=== PATIENT | male | born 1970 | race African-American/Black ===

== ENCOUNTER 2017-09-01 22:53 | Emergency (ER) | payer MEDICAID ==
[2017-09-01 23:29] LABS: HEMATOCRIT 33.5 % (42.0-54.0); HEMOGLOBIN 11.3 g/dL (13.5-17.5); LYMPHOCYTES 6.8 % (15-50); MCH 26.6 pg (26.0-34.0); MCHC 33.7 g/dL (31.0-37.0); MCV 78.8 fL (80.0-100.0); MEAN PLATELET VOLUME 10.3 fL (7.4-10.4); NEUTROPHILS 78.5 % (40-80); PLATELET COUNT 125 10x3/uL (130-400); RBC 4.25 10x6/uL (4.20-6.10); WBC 8.1 10x3/uL (4.8-10.8)
[2017-09-01 23:38] LABS: ALBUMIN 3.3 g/dL (3.4-5.0); ANION GAP 19.1 mmol/L (8-16); BILIRUBIN - TOTAL 2.24 mg/dL (0.2-1.3); CALCIUM 8.1 mg/dL (8.5-10.1); CARBON DIOXIDE 22.3 mmol/L (21.0-32.0); CREATININE - SERUM 1.4 mg/dL (0.6-1.3); MAGNESIUM - SERUM 1.8 mg/dL (1.8-2.4); POTASSIUM - SERUM 3.4 mmol/L (3.5-5.1); PROTEIN - SERUM 7.7 g/dL (6.4-8.2)
[2017-09-02 00:03] LABS: APPEARANCE CLOUDY (CLEAR); BILIRUBIN 1+ (NEGATIVE); COLOR DK YELLOW (YELLOW); GLUCOSE 500 mg/dL (NEGATIVE); KETONE MODERATE mg/dL (NEGATIVE); NITRITE NEGATIVE (NEGATIVE); PROTEIN TRACE mg/dL (NEGATIVE)
[2017-09-02 00:04] LABS: AMORPHOUS SEDIMENT >1+ /lpf (NONE SEEN); BACTERIA NONE SEEN /hpf (NONE SEEN); EPITHELIAL CELLS NSEEN /hpf (0-5); MUCUS <1+ /lpf (NONE SEEN); RED CELLS - URINE 0-5 /hpf (0-5); WHITE CELLS - URINE 0-5 /hpf (0-5)
[2017-09-02 00:04] LABS: CREATINE KINASE 507 UL (21-232); LIPASE 230 U/L (73-393); TROPONIN-I 0.026 ng/mL (0.000-0.060)
[2017-09-02 00:05] LABS: UDS - AMPHET NEGATIVE QUAL (NEGATIVE); UDS - BARB NEGATIVE QUAL (NEGATIVE); UDS - BENZO POSITIVE QUAL (NEGATIVE); UDS - COCAINE NEGATIVE QUAL (NEGATIVE); UDS - OPIATE NEGATIVE QUAL (NEGATIVE); UDS - PCP NEGATIVE QUAL (NEGATIVE); UDS - THC NEGATIVE QUAL (NEGATIVE)
[2017-09-02 00:06] LABS: CKMB 1.5 U/L (0.0-3.6)
== END 2017-09-02 02:20 | disposition home or self-care (01) ==
LOC: D.ER 22:53
PROVIDERS: Emergency Medicine
DX: F10.10 Alcohol abuse, uncomplicated (principal); G40.909 Epilepsy, unspecified, not intractable, without status epilepticus; Z91.14 Patient's other noncompliance with medication regimen; I10 Essential (primary) hypertension; E11.65 Type 2 diabetes mellitus with hyperglycemia; R00.0 Tachycardia, unspecified

== ENCOUNTER 2018-04-29 05:09 | Inpatient (IN) | payer MEDICAID ==
[~2018-04-29] VITALS: Ht 195.6 cm; Wt 109.1 kg
--- NOTE | ~2018-04-29 | MORECARE ---
CASE MANAGEMENT DISCHARGE SUMMARY PATIENT: EYAD PEARCE UNIT: [id number] ADM DATE: 04/29/18 AGE: 47 : 74 SEX: M ROOM/BED: D.2230 AUTHOR: JULISADOC PHYSICIAN: REFERRING PHYSICIAN: NIYAH ABERNATHY MD DATE OF SERVICE: 05/02/18 Discharge Plan Patient Name: EYAD PEARCE Facility: [facility]:[place] : 1970 Planned Disposition: Home Anticipated Discharge Date: 05/02/18 Discharge Date: Expected LOS: 3 Initial Reviewer: [email or web address] Initial Review Date: 05/02/2018 Generated: 05/02/18 1:01 pm Comments DCP- Discharge Planning Updated by [email or web address]: Veena So on 05/02/18 10:[address] Patient Name: EYAD PEARCE Admission Status: ER Accout number: [id number] Admission Date: 04-29-2018 : 1970 Admission Diagnosis:ALCOHOL DEPENDENCE WITH WITHDRAWAL, UNSPECIFIED Attending: NIYAH ABERNATHY Current LOS: 3 Anticipated DC Date: 05-02-2018 Planned Disposition: Home Primary Insurance: [employer] Discharge Planning Comments: CM met with patient to discuss discharge planning, he is alone in the room. States he lives with a friend, Sang Smiley. States he is independent with all ADL's. States he has not driven in 2 months because of seizures. States his friend, Sang or Rena, will pick him up. He refuses home health. States he is friends with Dr. Walton and Zuleika Sharp (RN) that can assist him if needed. He has a Rx written for his glucometer, test strips and lancets. I also informed him that he can get a glucometer for 10 dollars at [facility] and [facility] has a 4 dollar machine, I've been told. He is discharging home today. Manager Of Corporate: Veena So DCPIA - Discharge Planning Initial Assessment Updated by [email or web address]: Veena So on 05/02/18 11:37 am * Is the patient Alert and Oriented? Yes * How many steps to enter\\exit or inside your home? 2/0 * PCP Dr. Bernabe * Pharmacy None specific "whichever one is cheaper" * Preadmission Environment Home with Family * ADLs Independent * Equipment Other * Other Equipment Blood pressure machine * List name and contact numbers for known caregivers / representatives who currently or will assist patient after discharge: Sang Lean - [place] - [phone] * Verbal permission to speak to the caregivers and representatives has been obtained from the patient. Yes * Community resources currently utilized None * Additional services required to return to the preadmission environment? Yes * Can the patient safely return to the preadmission environment? Yes * Has this patient been hospitalized within the prior 30 days at any hospital? No Last DP export: 05/02/18 10:40 Patient Name: EYAD PEARCE Page [id number] at 1201 All edits/amendments must be made on the electronic document DICTATION DATE: 05/02/18 120 STUNT WOMAN: DONNA 05/02/18 120 RPT#: [id number] DC DATE: STATUS: ADM IN [facility] [address] [place] [address] END OF REPORT
--- NOTE | ~2018-04-29 | MORECARE ---
CASE MANAGEMENT DISCHARGE SUMMARY PATIENT: EYAD PEARCE UNIT: [id number] ADM DATE: 04/29/18 AGE: 47 : 74 SEX: M ROOM/BED: D.2230 AUTHOR: GENEVA EGAN PHYSICIAN: REFERRING PHYSICIAN: NIYAH ABERNATHY MD DATE OF SERVICE: 05/02/18 Discharge Plan Patient Name: [facility]YAD PEARCE [facility] [facility] 1970 Planned Disposition: Home Anticipated Discharge Date: 05/02/18 Discharge Date: Expected LOS: 3 Initial Reviewer: [email or web address] Initial Review Date: 05/02/2018 Generated: 05/02/18 12:40 pm DCPIA - Discharge Planning Initial Assessment Updated by [email or web address]: Veena So on 05/02/18 11:37 am * Is the patient Alert and Oriented? Yes * How many steps to enter\\exit or inside your home? 2/0 * PCP Dr. Bernaeb * Pharmacy None specific "whichever one is cheaper" * Preadmission Environment Home with Family * ADLs Independent * Equipment Other * Other Equipment Blood pressure machine * List name and contact numbers for known caregivers / representatives who currently or will assist patient after discharge: Sang Smiley [facility] [phone] * Verbal permission to speak to the caregivers and representatives has been obtained from the patient. Yes * Community resources currently utilized None * Additional services required to return to the preadmission environment? Yes * Can the patient safely return to the preadmission environment? Yes * Has this patient been hospitalized within the prior 30 days at any hospital? No Patient Name: EYAD PEARCE Page [id number] at 1140 All edits/amendments must be made on the electronic document DICTATION DATE: 05/02/18 1139 EMERY WHEEL MOLDER: DONNA 05/02/18 1139 RPT#: [id number] DC DATE: STATUS: ADM IN [facility] [address] [place] [address] END OF REPORT
--- NOTE | ~2018-04-29 | MORECARE ---
CASE MANAGEMENT DISCHARGE SUMMARY PATIENT: EYAD PEARCE UNIT: [id number] ADM DATE: 04/29/18 AGE: 47 : 74 SEX: M ROOM/BED: D.2230 AUTHOR: JUILSADOC PHYSICIAN: REFERRING PHYSICIAN: NIYAH ABERNATHY MD DATE OF SERVICE: 05/04/18 Discharge Plan Patient Name: EYAD PEARCE Facility: [facility]:[place] : 1970 Planned Disposition: Home Anticipated Discharge Date: 05/02/18 Discharge Date: 05/02/2018 Expected LOS: 3 Initial Reviewer: [email or web address] Initial Review Date: 05/02/2018 Generated: 05/04/18 4:03 pm Comments DCP- Discharge Planning Updated by [email or web address]: Veena So on 05/02/18 10:[address] Patient Name: EYAD PEARCE Admission Status: ER Accout number: [id number] Admission Date: 04-29-2018 : 1970 Admission Diagnosis:ALCOHOL DEPENDENCE WITH WITHDRAWAL, UNSPECIFIED Attending: NIYAH ABERNATHY Current LOS: 3 Anticipated DC Date: 05-02-2018 Planned Disposition: Home [facility] Discharge Planning Comments: CM met with patient to discuss discharge planning, he is alone in the room. States he lives with a friend, Sang Smiley. States he is independent with all ADL's. States he has not driven in 2 months because of seizures. States his friend, Sang or Rena, will pick him up. He refuses home health. States he is friends with Dr. Walton and Zuleika Sharp (RN) that can assist him if needed. He has a Rx written for his glucometer, test strips and lancets. I also informed him that he can get a glucometer for 10 dollars at [facility] and Michael has a 4 dollar machine, I've been told. He is discharging home today. Pattern Fitter: Veena So DCPIA - Discharge Planning Initial Assessment Updated by [email or web address]: Veena So on 05/02/18 11:37 am * Is the patient Alert and Oriented? Yes * How many steps to enter\\exit or inside your home? 2/0 * PCP Dr. Bernabe * Pharmacy None specific "whichever one is cheaper" * Preadmission Environment Home with Family * ADLs Independent * Equipment Other * Other Equipment Blood pressure machine * List name and contact numbers for known caregivers / representatives who currently or will assist patient after discharge: Sang Smiley - [place] - [phone] * Verbal permission to speak to the caregivers and representatives has been obtained from the patient. Yes * Community resources currently utilized None * Additional services required to return to the preadmission environment? Yes * Can the patient safely return to the preadmission environment? Yes * Has this patient been hospitalized within the prior 30 days at any hospital? No Last DP export: 05/02/18 11:01 Patient Name: EYAD PEARCE Page [id number] at 1503 All edits/amendments must be made on the electronic document DICTATION DATE: 05/04/18 150 SIFTER AND MILLER: DONNA 05/04/18 150 RPT#: [id number] DC DATE:05/02/18 STATUS: DIS IN [facility] [address] [place] [address] END OF REPORT
[2018-04-29] MEDS ORDERED: ZESTRIL10 MG (05:16)
[2018-04-29 05:44] LABS: BASOPHILS 0.3 % (0-2); EOSINOPHILS 0.8 % (0-7); HEMATOCRIT 35.9 % (42.0-54.0); HEMOGLOBIN 11.8 g/dL (13.5-17.5); IMMATURE GRANULOCYTES 0.2 % (0-5); LYMPHOCYTES 33.4 % (15-50); MCH 25.5 pg (26.0-34.0); MCHC 32.9 g/dL (31.0-37.0); MCV 77.7 fL (80.0-100.0); MONOCYTES 12.9 % (2-11); NEUTROPHILS 52.4 % (40-80); PLATELET COUNT 91 10x3/uL (130-400); RBC 4.62 10x6/uL (4.20-6.10); RDW 15.8 % (11.5-14.5)
[2018-04-29 05:53] LABS: APTT 29.2 SECONDS (22.8-39.4); INR 1.05 (0.85-1.17); PROTIME 13.2 SECONDS (11.6-15.0)
[2018-04-29 06:01] VITALS: BP 184/129
[2018-04-29 06:05] LABS: ALBUMIN 3.5 g/dL (3.4-5.0); ALKALINE PHOSPHATASE 122 U/L (46-116); ALT (SGPT) 78 U/L (10-68); CALC OSMOLALITY 273 mosm/kg (275-300); CALCIUM 9.1 mg/dL (8.5-10.1); CHLORIDE - SERUM 97 mmol/L (98-107); POTASSIUM - SERUM 3.7 mmol/L (3.5-5.1); PROTEIN - SERUM 7.9 g/dL (6.4-8.2); SODIUM 135 mmol/L (136-145); UREA NITROGEN 13 mg/dL (7-18); eGFR NON AFRICAN AMERICAN 86 mL/min (90-120)
[2018-04-29 06:06] LABS: GLUCOSE 166 mg/dL (74-106)
[2018-04-29 06:20] LABS: CKMB 0.8 U/L (0.0-3.6); CREATINE KINASE 310 UL (21-232); MAGNESIUM - SERUM 1.6 mg/dL (1.8-2.4); THYROID STIMULATING HORMONE 1.43 uIU/mL (0.36-3.74)
[2018-04-29 06:21] LABS: TROPONIN-I < 0.017 ng/mL (0.000-0.060)
[2018-04-29 06:50] VITALS: BP 191/126
[2018-04-29 10:51] VITALS: Ht 195.6 cm; Wt 109.1 kg
[2018-04-29 11:28] VITALS: BP 161/97
[2018-04-29 16:38] VITALS: BP 158/102
[2018-04-29 18:01] LABS: APPEARANCE CLEAR (CLEAR); BILIRUBIN NEGATIVE (NEGATIVE); COLOR YELLOW (YELLOW); GLUCOSE NEGATIVE (NEGATIVE); KETONE NEGATIVE (NEGATIVE); NITRITE NEGATIVE (NEGATIVE); PROTEIN NEGATIVE (NEGATIVE); SPECIFIC GRAVITY 1.015 (1.005-1.020); UROBILINOGEN NORMAL (NORMAL)
[2018-04-29 18:08] LABS: UDS - AMPHET NEGATIVE QUAL (NEGATIVE); UDS - BARB NEGATIVE QUAL (NEGATIVE); UDS - BENZO POSITIVE QUAL (NEGATIVE); UDS - COCAINE NEGATIVE QUAL (NEGATIVE); UDS - OPIATE POSITIVE QUAL (NEGATIVE); UDS - PCP NEGATIVE QUAL (NEGATIVE); UDS - THC NEGATIVE QUAL (NEGATIVE)
[2018-04-29 22:09] VITALS: BP 150/103
[2018-04-30 01:51] VITALS: BP 175/108
[2018-04-30 05:31] VITALS: BP 174/114
[2018-04-30 06:08] LABS: BASOPHILS 0.3 % (0-2); HEMATOCRIT 34.7 % (42.0-54.0); HEMOGLOBIN 11.1 g/dL (13.5-17.5); IMMATURE GRANULOCYTES 0.2 % (0-5); MCH 25.5 pg (26.0-34.0); MCV 79.6 fL (80.0-100.0); MONOCYTES 12.4 % (2-11); NEUTROPHILS 57.1 % (40-80); PLATELET COUNT 101 10x3/uL (130-400); RBC 4.36 10x6/uL (4.20-6.10); RDW 15.6 % (11.5-14.5)
[2018-04-30 06:18] LABS: CALC OSMOLALITY 275 mosm/kg (275-300); CALCIUM 8.5 mg/dL (8.5-10.1); CARBON DIOXIDE 26.1 mmol/L (21.0-32.0); CHLORIDE - SERUM 101 mmol/L (98-107); CREATININE - SERUM 0.9 mg/dL (0.6-1.3); GLUCOSE 158 mg/dL (74-106); MAGNESIUM - SERUM 2.1 mg/dL (1.8-2.4); POTASSIUM - SERUM 3.2 mmol/L (3.5-5.1); SODIUM 137 mmol/L (136-145); UREA NITROGEN 10 mg/dL (7-18); eGFR NON AFRICAN AMERICAN > 90 mL/min (90-120)
[2018-04-30 08:14] VITALS: BP 143/80
[2018-04-30 13:14] VITALS: BP 114/79; BP 130/90
[2018-04-30 17:50] VITALS: BP 125/76; BP 169/109
[2018-04-30 21:04] VITALS: BP 144/88
[2018-05-01 00:18] VITALS: BP 154/80
[2018-05-01 04:29] VITALS: BP 166/84
[2018-05-01 05:18] LABS: BASOPHILS 0.3 % (0-2); EOSINOPHILS 1.2 % (0-7); HEMATOCRIT 33.9 % (42.0-54.0); HEMOGLOBIN 10.8 g/dL (13.5-17.5); IMMATURE GRANULOCYTES 0.3 % (0-5); MCH 25.5 pg (26.0-34.0); MCHC 31.9 g/dL (31.0-37.0); MCV 80.1 fL (80.0-100.0); MEAN PLATELET VOLUME 11.5 fL (7.4-10.4); MONOCYTES 10.7 % (2-11); NEUTROPHILS 61.5 % (40-80); PLATELET COUNT 107 10x3/uL (130-400); RBC 4.23 10x6/uL (4.20-6.10); RDW 15.7 % (11.5-14.5); WBC 6.6 10x3/uL (4.8-10.8)
[2018-05-01 05:52] LABS: ALBUMIN 2.9 g/dL (3.4-5.0); ALKALINE PHOSPHATASE 83 U/L (46-116); BILIRUBIN - TOTAL 0.86 mg/dL (0.2-1.3); CALC OSMOLALITY 278 mosm/kg (275-300); CALCIUM 8.5 mg/dL (8.5-10.1); CARBON DIOXIDE 25.7 mmol/L (21.0-32.0); CHLORIDE - SERUM 104 mmol/L (98-107); CHOL - HDL RATIO 8.6 ratio (2.3-4.9); CHOLESTEROL, TOTAL 232 mg/dL (0-200); CREATININE - SERUM 0.9 mg/dL (0.6-1.3); GLUCOSE 146 mg/dL (74-106); HDL CHOLESTEROL 27 mg/dL (32-96); LDL CHOLESTEROL 180 mg/dL (0-100); LDL-HDL RATIO 6.7 ratio (1.5-3.5); PROTEIN - SERUM 6.7 g/dL (6.4-8.2); SODIUM 138 mmol/L (136-145); THYROID STIMULATING HORMONE 1.71 uIU/mL (0.36-3.74); TRIGLYCERIDE 129 mg/dL (30-200); UREA NITROGEN 12 mg/dL (7-18); eGFR NON AFRICAN AMERICAN > 90 mL/min (90-120)
[2018-05-01 06:17] LABS: ALT (SGPT) 50 U/L (10-68); POTASSIUM - SERUM 3.7 mmol/L (3.5-5.1)
[2018-05-01 08:10] VITALS: BP 160/103
[2018-05-01 12:45] VITALS: BP 151/99
[2018-05-01 17:57] VITALS: BP 141/91
[2018-05-01 21:23] VITALS: BP 172/98
[2018-05-02 05:52] VITALS: BP 162/101
[2018-05-02 06:16] LABS: BASOPHILS 0.3 % (0-2); EOSINOPHILS 1.2 % (0-7); HEMATOCRIT 32.8 % (42.0-54.0); HEMOGLOBIN 10.5 g/dL (13.5-17.5); IMMATURE GRANULOCYTES 0.5 % (0-5); LYMPHOCYTES 29.9 % (15-50); MCH 25.4 pg (26.0-34.0); MCV 79.4 fL (80.0-100.0); NEUTROPHILS 56.1 % (40-80); PLATELET COUNT 114 10x3/uL (130-400); RBC 4.13 10x6/uL (4.20-6.10); RDW 15.8 % (11.5-14.5); WBC 5.8 10x3/uL (4.8-10.8)
[2018-05-02 06:31] LABS: ALBUMIN 2.9 g/dL (3.4-5.0); ALKALINE PHOSPHATASE 83 U/L (46-116); ALT (SGPT) 47 U/L (10-68); BILIRUBIN - TOTAL 0.73 mg/dL (0.2-1.3); CALC OSMOLALITY 279 mosm/kg (275-300); CALCIUM 8.4 mg/dL (8.5-10.1); CARBON DIOXIDE 22.8 mmol/L (21.0-32.0); CHLORIDE - SERUM 107 mmol/L (98-107); CREATININE - SERUM 0.8 mg/dL (0.6-1.3); GLUCOSE 137 mg/dL (74-106); POTASSIUM - SERUM 3.9 mmol/L (3.5-5.1); PROTEIN - SERUM 6.8 g/dL (6.4-8.2); SODIUM 140 mmol/L (136-145); UREA NITROGEN 9 mg/dL (7-18); eGFR NON AFRICAN AMERICAN > 90 mL/min (90-120)
[2018-05-02 08:35] VITALS: BP 175/104
[2018-05-02] MEDS ORDERED: COREG12.5 MG PO (10:29)
[2018-05-02] MEDS ORDERED: HYDRALAZINE HCL50 MG PO (10:29)
[2018-05-02] MEDS ORDERED: ASPIRIN81 MG PO (10:30)
[2018-05-02] MEDS ORDERED: LIBRIUM25 MG PO (10:30)
[2018-05-02] MEDS ORDERED: GLUCOPHAGE500 MG PO (10:30)
[2018-05-02] MEDS ORDERED: VITAMIN B-1100 M1 PO (10:31)
[2018-05-02] MEDS ORDERED: FOLIC ACID1 MG PO (10:31)
[2018-05-02] MEDS ORDERED: FOLTX TABLET1 EACH PO (10:32)
[2018-05-02] MEDS ORDERED: PROTONIX40 MG PO (10:33)
[2018-05-02 11:48] LABS: APPEARANCE CLEAR (CLEAR); BILIRUBIN NEGATIVE (NEGATIVE); COLOR YELLOW (YELLOW); GLUCOSE 250 mg/dL (NEGATIVE); KETONE NEGATIVE (NEGATIVE); NITRITE NEGATIVE (NEGATIVE); PROTEIN TRACE mg/dL (NEGATIVE); SPECIFIC GRAVITY 1.025 (1.005-1.020)
[2018-05-02 11:49] LABS: BACTERIA FEW /hpf (NONE SEEN); EPITHELIAL CELLS RARE /hpf (0-5); MUCUS <1+ /lpf (NONE SEEN); RED CELLS - URINE RARE /hpf (0-5)
[2018-05-02 13:22] VITALS: BP 149/103
== END 2018-05-02 14:33 | disposition home or self-care (01) | DRG 101 ==
LOC: D.ER 05:09 → D.EDHOLD 07:10 → D.MS 07:10
PROVIDERS: Family Medicine; Internal Medicine Nephrology
DX: G40.89 Other seizures (principal); F10.239 Alcohol dependence with withdrawal, unspecified; E87.1 Hypo-osmolality and hyponatremia; F17.213 Nicotine dependence, cigarettes, with withdrawal; F10.231 Alcohol dependence with withdrawal delirium; G83.84 Todd's paralysis (postepileptic); Y90.9 Presence of alcohol in blood, level not specified; R56.9 Unspecified convulsions; E11.9 Type 2 diabetes mellitus without complications; I10 Essential (primary) hypertension; E83.42 Hypomagnesemia; F32.9 Major depressive disorder, single episode, unspecified; T51.91XA Toxic effect of unspecified alcohol, accidental (unintentional), initial encounter; D69.59 Other secondary thrombocytopenia; I69.398 Other sequelae of cerebral infarction; R20.9 Unspecified disturbances of skin sensation

== ENCOUNTER 2018-05-13 19:58 | Emergency (ER) | payer MEDICAID | END 2018-05-13 21:51 | disposition home or self-care (01) | LOC: D.ER 19:58 | DX: S39.012A Strain of muscle, fascia and tendon of lower back, initial encounter (principal); Y93.B9 Activity, other involving muscle strengthening exercises; Y92.019 Unspecified place in single-family (private) house as the place of occurrence of the external cause; M54.16 Radiculopathy, lumbar region; E11.9 Type 2 diabetes mellitus without complications; I10 Essential (primary) hypertension ==

== ENCOUNTER 2018-12-25 13:14 | Emergency (ER) | payer MEDICAID ==
[~2018-12-25] VITALS: Ht 195.6 cm; Wt 119.1 kg
[~2018-12-25 13:14] MED LIST: ASPIRIN81 MG PO; COREG12.5 MG PO; FOLIC ACID1 MG PO; FOLTX TABLET1 EACH PO; GLUCOPHAGE500 MG PO; HYDRALAZINE HCL50 MG PO; LIBRIUM25 MG PO; PROTONIX40 MG PO; ROBAXIN500 MG PO; VITAMIN B-1100 M1 PO; ZESTRIL10 MG
[2018-12-25 13:41] VITALS: Ht 195.6 cm; Wt 119.1 kg
[2018-12-25] MEDS ORDERED: LIBRIUM25 MG PO (13:48)
[2018-12-25] MEDS ORDERED: MULTI-DAY VITAM1 TAB PO (13:49)
[2018-12-25] MEDS ORDERED: FOLIC ACID1 MG PO (13:49)
[2018-12-25] MEDS ORDERED: FOLBIC RF TABL1 EACH PO (13:50)
[2018-12-25] MEDS ORDERED: ZANAFLEX4 MG PO (13:51)
[2018-12-25] MEDS ORDERED: HYDROCODON-ACE1 EAC7 PO (13:52)
[2018-12-25] MEDS ORDERED: NORVASC5 MG PO (13:53)
[2018-12-25] MEDS ORDERED: MICARDIS40 MG PO (13:54)
[2018-12-25 14:21] LABS: BASOPHILS 0.2 % (0-2); EOSINOPHILS 1.9 % (0-7); HEMATOCRIT 38.1 % (42.0-54.0); HEMOGLOBIN 13.3 g/dL (13.5-17.5); LYMPHOCYTES 41.1 % (15-50); MCH 23.6 pg (26.0-34.0); MCHC 34.9 g/dL (31.0-37.0); MCV 67.6 fL (80.0-100.0); MONOCYTES 9.5 % (2-11); NEUTROPHILS 47.3 % (40-80); PLATELET COUNT 103 10x3/uL (130-400); RBC 5.64 10x6/uL (4.20-6.10); RDW 15.1 % (11.5-14.5); WBC 4.3 10x3/uL (4.8-10.8)
[2018-12-25 14:32] LABS: APTT 27.4 SECONDS (22.8-39.4); INR 0.99 (0.85-1.17); PROTIME 12.6 SECONDS (11.6-15.0)
[2018-12-25 14:42] LABS: ALBUMIN 3.3 g/dL (3.4-5.0); ALKALINE PHOSPHATASE 76 U/L (46-116); ALT (SGPT) 22 U/L (10-68); CALC OSMOLALITY 287 mosm/kg (275-300); CALCIUM 8.7 mg/dL (8.5-10.1); CARBON DIOXIDE 24.7 mmol/L (21.0-32.0); CHLORIDE - SERUM 103 mmol/L (98-107); POTASSIUM - SERUM 3.6 mmol/L (3.5-5.1); PROTEIN - SERUM 7.2 g/dL (6.4-8.2); SODIUM 138 mmol/L (136-145); UREA NITROGEN 16 mg/dL (7-18); eGFR NON AFRICAN AMERICAN 85 mL/min (90-120)
[2018-12-25 14:49] LABS: CKMB 0.8 U/L (0.0-3.6); CREATINE KINASE 160 UL (21-232); MAGNESIUM - SERUM 1.6 mg/dL (1.8-2.4); TROPONIN-I < 0.017 ng/mL (0.000-0.060)
[2018-12-25 14:57] LABS: GLUCOSE 304 mg/dL (74-106)
[2018-12-25 17:53] LABS: TROPONIN-I 0.018 ng/mL (0.000-0.060)
[2018-12-25 18:21] LABS: APPEARANCE CLEAR (CLEAR); BILIRUBIN NEGATIVE (NEGATIVE); COLOR YELLOW (YELLOW); GLUCOSE 1000 mg/dL (NEGATIVE); KETONE NEGATIVE (NEGATIVE); NITRITE NEGATIVE (NEGATIVE); PROTEIN 1+ mg/dL (NEGATIVE); SPECIFIC GRAVITY 1.015 (1.005-1.020); UROBILINOGEN NORMAL (NORMAL)
[2018-12-25] MEDS ORDERED: CATAPRES0.1 MG PO (19:26)
[2018-12-25 19:56] VITALS: BP 140/97
== END 2018-12-25 19:57 | disposition home or self-care (01) ==
LOC: D.ER 13:14
PROVIDERS: Family Medicine
DX: I10 Essential (primary) hypertension (principal); E11.9 Type 2 diabetes mellitus without complications; R11.0 Nausea

== ENCOUNTER → 2019-01-01 09:47 | Outpatient (CLI) | payer MEDICAID ==
[2018-12-25 13:41] VITALS: BMI 31.1
[~2019-01-01 09:47] MED LIST changes: +CATAPRES0.1 MG PO; +FOLBIC RF TABL1 EACH PO; +HYDROCODON-ACE1 EAC7 PO; +MICARDIS40 MG PO; +MULTI-DAY VITAM1 TAB PO; +NORVASC5 MG PO; +ZANAFLEX4 MG PO
--- NOTE | 2019-01-08 09:53 | ST ---
PATIENT:EYAD PEARCE MEDICAL RECORD: [id number] SEX: M LOCATION:[facility] ORDER #: ADMISSION DATE: 01/01/19 AGE OF PATIENT: 48 REFERRING PHYSICIAN: INTERPRETING PHYSICIAN: FRAN YOUNG MD DATE OF SERVICE: 01/01/2019 PROCEDURE: Nuclear stress test. INDICATIONS: Shortness of breath, angina, hypertension, hyperlipidemia, diabetes, abnormal ECG. He was exercised on standard Joshua protocol for 6 minutes 20 seconds achieving greater than 85% max target heart rate response with 33 mCi of sestamibi injected at peak stress, 11 mCi used previously for rest images. FINDINGS: Gated SPECT reveals a dilated cardiomyopathy. Ejection fraction in the 20% range. SPECT imaging: Cardiolite was used as myocardial perfusion agent. There is a large area of mixed perfusion inferiorly and apically. This is partially fixed, partially reversible and includes the basal, mid, apical, inferior segments as well as the apex itself. There is reversibility throughout the defect. The remaining segments show homogeneous uptake at rest and stress. OVERALL IMPRESSION: This is an abnormal nuclear stress test showing an ischemic cardiomyopathy, ejection fraction in the 20% range with ongoing ischemia inferiorly as well as apically. We will proceed with coronary angiography as a followup study as this is a high risk nuclear stress test. TRANSINT:[id number] Voice Confirmation ID: [id number] DOCUMENT ID: [id number] FRAN YOUNG MD at 0953 CC: SILVINA HICKMAN DO [id number] DICTATION DATE: 01/02/19 1123 FRAME STRAIGHTENER: 01/02/19 2352 DEP CLI 01/01/19 [place] [id number] [place] [id number]
== END | disposition home or self-care (01) ==
LOC: D.HCCARDIO 09:47
PROVIDERS: ATTEND Internal Medicine Interventional Cardiology
DX: I20.9 Angina pectoris, unspecified (principal)

== ENCOUNTER 2019-01-29 11:31 | Outpatient (CLI) | payer MEDICAID ==
[~2019-01-29] VITALS: Ht 195.6 cm; Wt 118.6 kg
--- NOTE | ~2019-01-29 | HEMODYNAMI ---
PATIENT:EYAD PEARCE MEDICAL RECORD: [id number] : 74 LOCATION:[facility] ADMISSION DATE: 01/29/19 Generatedon:01/29/201914:23 Patient name: EYAD PEARCE Patient #: [id number] SSN: [id number] : 1970 Date of study: 01/29/2019 Page: Of Hemodynamic Procedure Report Patient Data Patient Demographics Procedure consent was obtained First Name: EYAD Gender: Male Last Name: PORTIA : 1970 Patient #: [id number] Age: 48 year(s) Race: Black SSN: [id number] Additional ID: [id number] Contact details Address: [address] [place] [address] State: [place] City: [place] Zip code: [address] Admission Admission Data Admission Date: 01/29/2019 Admission Time: 11:31 Arrival Date: 01/29/2019 Arrival Time: 13:30 Admit Source: Other Insurance Payor: Private health insurance Height (in.): 77 BSA: 2.5 (m2) Height (cm.): 195.58 BMI: 30.95 (kg/m2) Weight (lbs.): 261 Weight (kg.): 118.39 Lab Results Lab Result Date: 01/29/2019 Lab Result Time: 0:00 Biochemistry Name Units Result Min Max BUN mg/dl 24 --(----)-* 7 18 Creatinine mg/dl 1.3 --(---*)-- 0.6 1.3 CBC Name Units Result Min Max Hemoglobin g/dl 13.9 --(*---)-- 13.5 17.5 Procedure Procedure Types Cath Procedure Diagnostic Procedure [facility] w/Coronaries Sedation Charges Moderate Sedation up to 15 minutes Procedure Description Procedure Date Procedure Date: 01/29/2019 Procedure Start Time: 14:11 Procedure End Time: 14:21 Procedure Staff Name Function Arcadio Ruff MD Performing Physician Kayla Cao RT Monitor Nina Stoddard RT Scrub Elia Mario RN Nurse Procedure Data Cath Procedure Fluoroscopy Diagnostic fluoroscopy Total fluoroscopy Time: 2.2 time: 2.2 min min Diagnostic fluoroscopy Total fluoroscopy dose: dose: 299.94 mGy 299.94 mGy Contrast Material Contrast Material Type Amount (ml) Isovue 300 64 Entry Location Entry Primary Successful Side Size Upsize Upsize Entry Closure Sidhu ccessful Closure Location (Fr) 1 (Fr) 2 (Fr) Remarks Device Remarks Radial Right 6 Fr Mechanical artery Short Compression Estimated blood loss: 5 ml Diagnostic catheters Device Type Used For End Catheter Placement DIAGNOSTIC Thomson 110cm 5 Multi-vessel Fr catheter ([id number]) Angiography Procedure Complications No complications Procedure Medications Medication Administration Route Dosage 0.9% NaCl I.V. 100 ml/hr Oxygen etCO2 Nasal cannula 2 l/min Heparin Flush Bag added to field 2 bags (1000units/500ml NS) Lidocaine 2% added to field 20 Radial Cocktail added to field 1 syringe (Verapamil 2mg/Nitro 400mcg/Heparin 1500units) Versed I.V. 2 mg Fentanyl I.V. 100 mcg Benadryl I.V. 50 mg Radial Cocktail I.A. 1 syringe (Verapamil 2mg/Nitro 400mcg/Heparin 1500units) Versed I.V. 1 mg Hemodynamics Rest BSA: 2.5 (m2) HGB: 13.9 (g/dl) O2 Consumption: Estimated: 319.9 (ml/min) O2 Cons umption indexed: Estimated:127.96 (ml/min/m) Heart Rate: 90 (bpm) Pressure Samples Time Site Value (mmHg) Purpose Heart Use Rate(bpm) 14:13 LV 111/-5,6 Snapshot 92 Gradients Valve Time Site Site Mean SEP/DFP Peak To Heart Use 1 2 (mmHg) (sec/min) Peak Rate (mmHg) (bpm) Aortic 14:14 LV AO 88 Snapshots Pre Cath Intra NCS Post Cath Vital Signs Time Heart Resp SPO2 etCO2 NIBP (mmHg) Rhythm Pain Sedation Rate (ipm) (%) (mmHg) Status Level (bpm) 13:55:18 81 15 98 33.7 162/109(128) NSR 0 (11) 10(A) , No pain 13:59:36 86 19 100 35.9 161/111(130) NSR 0 (11) 10(A) , No pain 14:03:53 87 18 100 20.9 163/119(138) NSR 0 (11) 10(A) , No pain 14:08:11 85 15 99 38.1 161/115(131) NSR 0 (11) 9(A) , No pain 14:12:29 90 14 99 39.6 160/110(131) NSR 0 (11) 9(A) , No pain 14:16:45 83 14 96 39.6 150/102(126) NSR 0 (11) 10(A) , No pain 14:20:59 84 13 96 37.4 146/104(119) NSR 0 (11) 10(A) , No pain Medications Time Medication Route Dose Verified Delivered Reason Notes Effectiveness by by 14:01:40 0.9% NaCl I.V. 100 Elia Elia Per ml/hr Fabiano Mario physician RN RN 14:01:54 Oxygen etCO2 2 l/min Elia Elia for low 02 Nasal Lorregina Mario sats cannula RN RN 14:02:08 Heparin Flush added 2 bags Elia Elia used for Bag to Fabiano Mario procedure (1000units/500ml field LUKE RN NS) 14:02:22 Lidocaine 2% added 20ml Elia Elia for local to vial Lorigan Fabiano anesthetic field LUKE RN 14:02:34 Radial Cocktail added 1 Elia Elia used for (Verapamil to syringe Erlindaigan Fabiano procedure 2mg/Nitro field LUKE RN 400mcg/Heparin 1500units) 14:02:49 Versed I.V. 2 mg Elia Elia for sedation Fabiano Mario RN RN 14:02:59 Fentanyl I.V. 100 mcg Elia Elia for sedation Fabiano Mario RN RN 14:03:09 Benadryl I.V. 50 mg Elia Elia Per Fabiano Mario physician RN RN 14:09:23 Radial Cocktail I.A. 1 Elia Arcadio for (Verapamil syringe Lorigan [place] vasodilation 2mg/Nitro TI GONZALEZ 400mcg/Heparin 1500units) 14:09:31 Versed I.V. 1 mg Elia Elia for sedation Fabiano Mario RN radio interference supervisor Log Time Note 13:35:07 Elia Mario RN sent for patient. Start room use. 13:39:03 Diagnostic Cath Status : Elective 13:39:39 Informed consent obtained and on chart 13:39:56 Patient Height : 77 inches 13:40:15 Insurance Payor : Private health insurance 13:40:15 Patient Weight : 261 lbs 13:40:17 Arrival Date: 01/29/2019 1:30:00 PM 13:40:27 Admit Source: Other 13:42:29 Lab Result : BUN 24 mg/dl 13:42:29 Lab Result : Creatinine 1.3 mg/dl 13:42:29 Lab Result : Hemoglobin 13.9 g/dl 13:43:59 ACCPatient has been prescribed/administered the following anti-anginal medication within the last 2 weeks: None 13:44:04 Procedure Status Elective Heart Cath (OP). 13:44:14 Time tracking: Regular hours (M-F 7:00 - 5:00) 13:44:19 Plan of Care:Hemodynamics will remain stable., Cardiac rhythm will remain stable., Comfort level will be maintained., Respiratory function will remain adequate., Patient/ family verbilizes understanding of procedure., Procedure tolerated without complication., Recovers from procedure without complications.. 13:44:48 Patient received from Pre/Post Procedure Room to CCL 3 Alert and oriented. Tansferred to table in Supine position. 13:44:49 Warm blankets applied, and elder hugger turned on for patient comfort. 13:44:49 Correct patient and procedure confirmed by team. 13:44:50 ECG and BP/O2 sat monitors applied to patient. 13:54:09 Vital chart was started 13:54:10 Baseline sample Acquired. 13:54:14 Rhythm: sinus rhythm 13:54:16 Full Disclosure recording started 13:54:19 H&P Date Dictated: 01/29/2019 Within 30 days and on chart., H&P Addendum completed by physician on day of procedure. (MUST COMPLETE FOR ALL OUTPATIENTS). 13:54:21 Pre-procedure instructions explained to patient. 13:54:22 Pre-op teaching completed and patient verbalized understanding. 13:54:23 Family in waiting room. 13:54:25 Patient NPO since Midnight. 13:54:28 Is the patient allergic to Iodine/contrast media? No. 13:54:29 Was the patient premedicated? No 13:54:44 Is patient on blood thinner?No 13:54:46 Patient diabetic? Yes. 13:54:47 If diabetic: On Metformin? Yes 13:54:50 If on Metformin: Last Dose? 01/27/2019 13:54:54 Previous problem with sedation/anesthesia? No ? 13:54:56 Snore? Yes 13:54:57 Sleep apnea? Yes 13:54:58 Deviated septum? No 13:54:58 Opens mouth fully? Yes 13:54:59 Sticks out tongue? Yes 13:55:01 Airway obstruction? No ? 13:55:03 Dentures? No ? 13:55:27 Pre procedure: right dorsailis pedis pulse 2+ Normal; easily identifiable; not easily obliterated 13:55:33 Pre procedure: left dorsailis pedis pulse 2+ Normal; easily identifiable; not easily obliterated 13:55:36 Patient pain scale 0/10 ?. 13:55:41 IV patent on arrival in left forearm with 0.9% NaCl at O. 13:55:44 Lab results completed and on chart. 13:55:49 Right Radial & Right Groin area was prepped with chlora-prep and draped in sterile fashion 13:55:57 Alarms reviewed by R. N. 13:55:57 Sharps counted by scrub and verified by R.N. 13:56:01 Physician arrived 13:56:02 --------ALL STOP TIME OUT------ 13:56:02 Final Timeout: patient, procedure, and site verified with staff and physician. All members of the team are in agreement. 13:56:09 Right Radial & Right Groin site verified by team. 13:56:13 Fire Safety Assessment: A--An alcohol-based skin anteseptic being used preoperatively., C--Open oxygen or nitrous oxide is being used., D--An ESU, laser, or fiber-optic light is being used. 13:56:16 Physical assessment completed. ASA score P 2 - A patient with mild systemic disease as per Arcadio Ruff MD. 13:59:04 2) 60-89 Mildly reduced kidney function, and other findings (as for stage 1) point to kidney disease. 13:59:55 Maximum allowable contrast dose (3.7 X eGFR X 0.75)210 ml. 14:00:01 Sedation plan: IV Moderate Sedation Medication:Versed, Fentanyl 14:01:40 0.9% NaCl 100 ml/hr I.V. was administered by Elia Mario RN; Per physician; 14:01:54 Oxygen 2 l/min etCO2 Nasal cannula was administered by Elia Mario RN; for low 02 sats; 14:02:08 Heparin Flush Bag (1000units/500ml NS) 2 bags added to field was administered by Elia Mario RN; used for procedure; 14:02:22 Lidocaine 2% 20ml vial added to field was administered by Elia Mario RN; for local anesthetic; 14:02:34 Radial Cocktail (Verapamil 2mg/Nitro 400mcg/Heparin 1500units) 1 syringe added to field was administered by Elia Mario RN; used for procedure; 14:02:47 Use device set Radial Dx or PCI 14:02:48 ACIST Syringe (84663) opened to sterile field. 14:02:49 Versed 2 mg I.V. was administered by Elia Mario RN; for sedation; 14:02:49 Medline Cath Pack ([id number]) opened to sterile field. 14:02:49 Bag Decanter () opened to sterile field. 14:02:49 ACIST Hand Control (72188) opened to sterile field. 14:02:50 ACIST Manifold (10627) opened to sterile field. 14:02:50 Tegaderm 4 x 4 (1626W) opened to sterile field. 14:02:51 MBrace Wrist Support ([id number]) opened to sterile field. 14:02:51 NEEDLE Cook 21G 4cm Radial (X21187) opened to sterile field. 14:02:59 Fentanyl 100 mcg I.V. was administered by Elia Mario RN; for sedation; 14:03:09 Benadryl 50 mg I.V. was administered by Elia Mario RN; Per physician; 14:03:16 SHEATH 6FR RAIN (0083770) opened to sterile field. 14:03:17 EMERALD Guide Wire (010-183) opened to sterile field. 14:09:23 Radial Cocktail (Verapamil 2mg/Nitro 400mcg/Heparin 1500units) 1 syringe I.A. was administered by Arcadio Ruff MD; for vasodilation; 14:09:31 Versed 1 mg I.V. was administered by Elia Mario RN; for sedation; 14:11:13 Procedure started. 14:11:18 Local anesthetic to right radial artery with Lidocaine 2% by Arcadio Ruff MD.INITIAL ACCESS ONLY 14:11:28 A 6 Fr Short sheath was inserted into the Right Radial artery 14:12:38 GLIDE WIRE ANGLE 260cm (AR7357) opened to sterile field. 14:12:54 A DIAGNOSTIC Thomson 110cm 5 Fr catheter (982877) was advanced over the wire and used for Multi-vessel Angiography. 14:13:45 LV hemodynamics recorded. 14:13:46 LV gram done using COMBS 14:13:48 Injector settings: Ml/sec: 5, Volume: 15, 14:14:10 EF : 25 % 14:14:28 LCA angiography performed. 14:14:31 Injector settings: Ml/sec: 3, Volume: 6, 14:16:09 ACCDominant side:Co-Dominant 14:16:38 RCA angiography performed. 14:16:41 Injector settings: Ml/sec: 3, Volume: 6, 14:16:42 Catheter removed. 14:17:14 ZEPHYR REGULAR TR BAND (754705) opened to sterile field. 14:17:53 Sheath removed intact; hemostasis achieved with Mechanical Compression to the Right Radial artery. 14:17:56 Procedure ended.(Physican Out) 14:18:58 Fluoroscopy time 02.20 minutes. 14:19:18 Fluoroscopy dose: 299.94 mGy 14:19:18 Flurop Dose total: 299.94 14:19:36 Dose Area Product 2199.34 mGy/cm. 14:19:50 Contrast amount:Isovue 300 64ml. 14:19:52 Sharps counted by scrub and verified by R.N. 14:19:54 Hardin band inflated with 10cc of air. 14:19:56 Insertion/operative site no bleeding no hematoma. 14:20:01 Post right radial artery:stable 14:20:02 Post Procedure Pulses reassessed and unchanged 14:20:05 Post procedure rhythm: unchanged. 14:20:08 Estimated blood loss: 5 ml 14:20:10 Post procedure instruction explained to patient.Patient verbalizes understanding. 14:20:10 Patient needs reinforcement of post procedure teaching. 14:20:17 Procedure type changed to Cath procedure, Diagnostic procedure, LHC, LHC w/Coronaries, Sedation Charges, Moderate Sedation up to 15 minutes 14:20:19 Procedure and supply charges have been captured, reviewed, submitted and are correct. 14:20:23 Procedure Complication : No complications 14:20:25 Vital chart was stopped 14:20:26 See physician's report for complete and final results. 14:20:55 Report given to Pre/Post Procedure Room. 14:20:59 Patient transfered to Pre/Post Procedure Room with Stretcher. 14:21:01 Procedure ended. 14:21:01 Full Disclosure recording stopped 14:21:11 End room use (Document Last) Device Usage Item Name Manufacture Quantity Catalog Hospital Part Current Minima l Lot# / Number Charge Number Stock Stock Serial# Code ACIST Acist 1 18168 [id number] 422797 [id number] 20 Syringe Medical (90601) Systems Inc Medline Medline 1 [id number] 894835 47796 540082 5 Cath Pack ([id number]) Bag Microtek 1 749913 57004 891456 5 Decanter Medical Inc. () ACIST Hand Acist 1 06064 610376 829267 027698 5 Control Medical (88799) Systems Inc ACIST Acist 1 16240 028576 909583 940258 5 Manifold Medical (55249) Systems Inc Tegaderm 4 3M 1 1626W 250173 331187 458430 5 x 4 (1626W) MBrace Advanced 1 140-0250-00 733393 73774 418058 5 Wrist Vascular Support Dynamics ([id number]) NEEDLE Cook Cook Medical 1 M95661 700052 572647 956871 5 21G 4cm Radial (N41736) SHEATH 6FR Cardinal 1 8272149 797227 8847085 338402 5 [facility] (5566694) EMERALD Cardinal 1 502-455 761928 951241 492474 5 Guide Wire Health (564-455) GLIDE WIRE Terumo 1 BC7942 725308 376407 989581 5 ANGLE 260cm (EK7086) DIAGNOSTIC Terumo 1 07-9315 075051 602053 517255 5 Thomson 110cm 5 Fr catheter (404830) ZEPHYR Cardinal 1 726682 929728 3394119 690594 5 REGULAR TR Health BAND (051198) Signature Audit [place] Stage Time Signature Unsigned Intra-Procedure 01/29/2019 Kayla Cao 2:23:30 PM RT(R) Signatures Performing Physician : Signature : Arcadio Ruff MD Date : Time : Monitor : Kayla Cao RT Signature : Date : Time : Nurse : Elia Coffeyigan Signature : RN Date : Time : [facility] [address] [place] [address], [place] [address]
[2019-01-29] MEDS ORDERED: ENTRESTO 49 MG1 EACH PO (12:21)
[2019-01-29] MEDS ORDERED: NORVASC5 MG PO (12:22)
[2019-01-29] MEDS ORDERED: HYDROCODONE-A1 UDTA2 PO (12:22)
[2019-01-29 12:34] VITALS: BP 134/95; Ht 195.6 cm; Wt 118.6 kg
[2019-01-29 12:54] LABS: BASOPHILS 0.7 % (0-2); EOSINOPHILS 3.2 % (0-7); HEMATOCRIT 40.1 % (42.0-54.0); HEMOGLOBIN 13.9 g/dL (13.5-17.5); IMMATURE GRANULOCYTES 0.2 % (0-5); LYMPHOCYTES 44.8 % (15-50); MCH 23.3 pg (26.0-34.0); MCHC 34.7 g/dL (31.0-37.0); MCV 67.2 fL (80.0-100.0); MONOCYTES 11.2 % (2-11); NEUTROPHILS 39.9 % (40-80); PLATELET COUNT 149 10x3/uL (130-400); RBC 5.97 10x6/uL (4.20-6.10); RDW 14.9 % (11.5-14.5); WBC 5.5 10x3/uL (4.8-10.8)
[2019-01-29 12:55] LABS: ANION GAP 11.1 mmol/L (8-16); CALCIUM 9.2 mg/dL (8.5-10.1); CARBON DIOXIDE 28.8 mmol/L (21.0-32.0); CHOL - HDL RATIO 6.1 ratio (2.3-4.9); CREATININE - SERUM 1.3 mg/dL (0.6-1.3); LDL-HDL RATIO 3.6 ratio (1.5-3.5); POTASSIUM - SERUM 3.9 mmol/L (3.5-5.1)
--- NOTE | 2019-01-29 14:56 | NUR ---
DR DONOVAN HAS ROUNDED ON PT, NEW ORDER FOR CLONIDINE 0.1MG PO X1 FOR DIASTOLIC BP 109. PT IS ALERT AND DENIES ANY C/O. ZEPHYR BAND IS CDI TO RIGHT WRIST. FINGERS WARM AND CAP REFILL IS BRISK. NSR, DENIES ANY C/O CHEST PAIN. CALL LIGHT IN REACH.
--- NOTE | 2019-01-29 15:07 | NUR ---
SANDWICH AND PO FLUIDS SERVED. PT IS ALERT AND DENIES ANY C/O. ZEPHYR BAND IS CDI TO RIGHT WRIST, FINGERS WARM AND CAP REFILL IS BRISK. PT HAS RECEIVED CLONIDINE 0.1 MG PO PER ORDERS.
[2019-01-29] MEDS ORDERED: ALDACTONE25 MG PO (15:21)
[2019-01-29] MEDS ORDERED: VISTARIL25 MG PO (15:21)
--- NOTE | 2019-01-29 16:01 | NUR ---
1525 PT ALERT, YARELI SANDWICH AND PO FLUIDS WITH NO NAUSEA. BAND CDI TO RIGHT WRIST. FINGERS WARM AND CAP REFILL IS BRISK. VSS. CALL LIGHT IN REACH. 1600 3 CC OF AIR WEANED FROM BAND WITH NO BLEEDING NOTED. FINGERS WARM AND CAP REFILL IS BRISK.
--- NOTE | 2019-01-29 16:30 | NUR ---
1620 4 CC OF AIR WEANED FROM TR BAND WTIH NO BLEEDING NOTED. FINGERS WARM AND CAP REFILL IS BRISK.
--- NOTE | 2019-01-29 16:38 | NUR ---
ALL REMAINING AIR WEANED FROM TR BAND WITH NO BLEEDING NOTED. FINGERS WARM AND CAP REFILL IS BRISK. VSS, PT IS ALERT AND DENIES ANY C/O. DC INSTRUCTIONS HAVE BEEN REVIEWED WITH PT WHO VERBALIZES UNDERSTANDING. PRESCRIPTIONS FOR ALDACTONE AND VISTARIL TO PT.
--- NOTE | 2019-01-29 16:43 | NUR ---
IV DC'D WITH CATH INTACT AND PT IS DRESSING FOR DC TO HOME.
--- NOTE | 2019-01-29 16:57 | NUR ---
ZEPHYR BAND HAS BEEN REMOVED AND 2X2, TEGADERM PLACED TO SITE. FINGERS WARM, PULSES PALPABLE. PT DENIES ANY NV DEFICIT TO HAND. AWAITING HIS RIDE TO PICK HIM UP. PT HAS AMBULTED TO THE BATHROOM AND VOIDED QS. DENIES ANY C/O.
--- NOTE | 2019-01-29 17:15 | NUR ---
PT ESCORTED TO PRIVATE AUTO VIA WC BY NURSE WITH FRIEND DRIVING HIM HOME. PT IS ALERT AND DENIES ANY C/O UPON DC. HAS ALL PERSONAL BELONGINGS AND DC INSTRUCTIONS.
--- NOTE | 2019-02-05 14:28 | OP ---
PATIENT NAME: EYAD PEARCE MEDICAL RECORD: [id number] :74 LOCATION:D.CAT ADMISSION DATE: SURGEON: ITZEL DONOVAN MD DATE OF OPERATION: 01/29/2019 PROCEDURE: Left heart catheterization, selective coronary angiography, right radial approach. CATHETERS: Radial sheath, [place] catheter. The procedure was well tolerated. The patient was returned to dyer. Sheath was removed. TR band was placed. FINDINGS: Left ventriculography in 30-degree COMBS view, severe global hypokinesis. Overall reduced LV function 20% to 25%. CORONARY ANATOMY: LEFT MAIN: Left main is free of disease. LAD: Large vessel, free of disease. CIRCUMFLEX: Large vessel, free of disease. RIGHT CORONARY ARTERY: Codominant large vessel, free of disease. IMPRESSION: Nonischemic cardiomyopathy. Add Aldactone to underlying Entresto. We will consider beta blockade in the near future as an outpatient. TRANSINT:[id number] Voice Confirmation ID: [id number] DOCUMENT ID: [id number] ITZEL DONOVAN MD at 1428 CC: [id number] DICTATION DATE: 01/29/19 1431 ZIGZAG TUNNEL ELASTIC OPERATOR: 01/29/19 1454 DEP CLI 01/29/19 [facility] [address] [place] [address]
== END 2019-01-29 17:15 | disposition home or self-care (01) ==
LOC: D.CATH 11:31
PROVIDERS: ATTEND Internal Medicine Interventional Cardiology
DX: I42.9 Cardiomyopathy, unspecified (principal); Z01.812 Encounter for preprocedural laboratory examination

== ENCOUNTER → 2019-06-06 14:35 | Outpatient (CLI) | payer MEDICAID ==
[2019-01-29 12:34] VITALS: BMI 31.0
--- NOTE | ~2019-06-06 | EC ---
PATIENT:EYAD PEARCE DATE OF SERVICE: 06/06/19 SEX: M MEDICAL RECORD: [id number] DATE OF : 74 [facility] AGE OF PATIENT: 48 ADMISSION DATE: 06/06/19 REFERRING PHYSICIAN: INTERPRETING PHYSICIAN: ITZEL DONOVAN MD ECHOCARDIOGRAM REPORT ECHO CHARGES 4 ECHO COMPLETE Date: 06/06/19 CLINICAL DIAGNOSIS: CARDIOMYOPATHY/MITRAL REGURG ECHOCARDIOGRAPHIC MEASUREMENTS (adult normal given) AC root (d.<3.7cm) 4.4 cm LV Septum d (<1.2 cm> 1.6 cm Valve Excursion 1.6 cm LV Septum (systole) 1.9 cm Left Atria (s.<4.0cm> 3.1 cm LVPW d(<1.2cm) 1.7 cm RV (d.<2.3cm) 2.4 cm LVPW (sytole) 1.9 cm LV diastole(<5.6CM) 6.6 cm MV E-F(>70mm/sec) cm LV systole 5.2 cm LVOT Diameter 2.4 cm MV exc.(>10mm) 1.4 cm Est.ejection fraction (50-75%) % DOPPLER: LVIT cm/sec A 82.0 cm/sec E 45.0 cm/sec LA cm/sec RVSP 14 mmHg LVOT 88 cm/sec AOP1/2T m/s Asc. Ao 98 cm/sec RVOT 77 cm/sec RA cm/sec PA 91 cm/sec AV Gradient Peak 3.85 mmHg AV Mean 2.22 mmHg AV Area 4.9 cm MV Gradient Peak 4.36 mmHg MV Mean 1.74 mmHg MV Area cm COMMENTS: Surgical Coder: 2 FUNMI PRADO Store Shopper: 3 Dr. Wang TAPE# PACS Pericardial Effusion N DATE OF SERVICE: Adequate 2D echo, color flow, spectral Doppler, and M-mode. LVH is present. LV internal dimension is dilated at 6.6 cm. LV function appears to be lower limits normal, mildly reduced at 45% to 50%. Aortic valve is sclerosed without stenosis by Doppler interrogation. Left atrium is normal. Mitral valve shows no prolapse. Mild MR. Right-sided chambers are grossly normal. Mild TR. ECHOCARDIOGRAM REPORT [id number] EYAD PEARCE TRANSINT:[id number] Voice Confirmation ID: [id number] DOCUMENT ID: [id number] ITZEL DONOVAN MD CC: [id number] DICTATION DATE: 06/10/19 1510 DIRECTOR ADULT: 06/10/19 1823 DEP CLI 06/06/19 [place] [id number] [place] [id number]
[~2019-06-06 14:35] MED LIST changes: +ALDACTONE25 MG PO; +ENTRESTO 49 MG1 EACH PO; +HYDROCODONE-A1 UDTA2 PO; +VISTARIL25 MG PO
== END | disposition home or self-care (01) ==
LOC: D.HCCECHO 14:30
PROVIDERS: ATTEND Internal Medicine Interventional Cardiology
DX: I42.9 Cardiomyopathy, unspecified (principal)

== ENCOUNTER 2019-11-07 15:36 | Emergency (ER) | payer OTHER ==
[~2019-11-07] VITALS: Ht 195.6 cm; Wt 118.2 kg
[2019-11-07 15:49] VITALS: Ht 195.6 cm; Wt 118.2 kg
[2019-11-07] MEDS ORDERED: TYLENOL #4 W/CO1 TAB PO (18:16)
[2019-11-07] MEDS ORDERED: COLCRYS0.6 MG PO (18:16)
[2019-11-07 18:43] VITALS: BP 138/100
== END 2019-11-07 18:44 | disposition home or self-care (01) ==
LOC: D.ER 15:36
DX: M10.9 Gout, unspecified (principal); E11.9 Type 2 diabetes mellitus without complications; I10 Essential (primary) hypertension; Z79.84 Long term (current) use of oral hypoglycemic drugs; M25.562 Pain in left knee; M25.561 Pain in right knee; M25.462 Effusion, left knee

== ENCOUNTER 2020-11-21 22:14 | Emergency (ER) | payer OTHER ==
[~2020-11-21] VITALS: Ht 195.6 cm; Wt 115.7 kg
[~2020-11-21 22:14] MED LIST changes: +COLCRYS0.6 MG PO; +TYLENOL #4 W/CO1 TAB PO
[2020-11-21 22:28] VITALS: Ht 195.6 cm; Wt 115.7 kg
[2020-11-22 04:29] VITALS: BP 156/93
== END 2020-11-22 03:50 | disposition home or self-care (01) ==
LOC: D.ER 22:14
DX: S06.0X0A Concussion without loss of consciousness, initial encounter (principal); W01.0XXA Fall on same level from slipping, tripping and stumbling without subsequent striking against object, initial encounter; S16.1XXA Strain of muscle, fascia and tendon at neck level, initial encounter; E11.9 Type 2 diabetes mellitus without complications; I10 Essential (primary) hypertension